=== PATIENT | female | born 1995 | race Two or more races ===

== ENCOUNTER 2016-05-28 10:32 | Emergency (ER) | payer BC, OTHER ==
[2016-05-28] MEDS ORDERED: LIDOCAINE VISCOUS 2% 15 ML UDC MM STA (12:58)
[2016-05-28] MEDS ORDERED: SUCRALFATE 1 GM/10 ML UDC PO STA (12:58)
[2016-05-28] MEDS ORDERED: MAG HYDROX/AL HYDROX/SIMETH 30 ML UDC PO STA (12:58)
[2016-05-28] MEDS ORDERED: HYDROcod/ACETAM 5/325 MG TABLET PO STA (12:58)
[2016-05-28] MEDS ORDERED: HYDROcod/ACETAM 5/325 MG TABLET ONE (13:01)
[2016-05-28] MEDS ORDERED: SUCRALFATE 1 GM/10 ML UDC ONE (13:01)
[2016-05-28] MEDS ORDERED: MAG HYDROX/AL HYDROX/SIMETH 30 ML UDC ONE (13:01)
[2016-05-28] MEDS ORDERED: LIDOCAINE VISCOUS 2% 15 ML UDC MM ONE (13:01)
[2016-05-28] MEDS ORDERED: DICYCLOMINE 10 MG CAPSULE PO STA (14:01)
[2016-05-28] MEDS ORDERED: KETOROLAC 60 MG/2 ML VIAL IM STA (14:01)
[2016-05-28] MEDS ORDERED: KETOROLAC 60 MG/2 ML VIAL ONE (14:04)
[2016-05-28] MEDS ORDERED: DICYCLOMINE 10 MG CAPSULE PO ONE (14:04)
== END 2016-05-28 15:10 | disposition home or self-care (01) ==
DX: M54.6 Pain in thoracic spine (principal); R10.13 Epigastric pain; F17.200 Nicotine dependence, unspecified, uncomplicated; R03.0 Elevated blood-pressure reading, without diagnosis of hypertension; R10.816 Epigastric abdominal tenderness
CPT/HCPCS: 36415; 80053; 81001; 81025; 83690; 85025; 96372; 99283; A9270